=== PATIENT | male | born 1955 | race Caucasian/White ===

== ENCOUNTER 2020-08-31 16:12 | Outpatient (CLI) | payer MEDICARE, SELFPAY ==
[2020-08-31 16:45] LABS: Alanine Aminotransferase 23 U/L (4-50); Albumin Level 4.4 g/dL (3.5-5.1); Alkaline Phosphatase 46 U/L (38-126); Anion Gap 3 mmol/L (8-16); Aspartate Amino Transferase 25 U/L (17-59); Bilirubin,Total 0.3 mg/dL (0.2-1.3); Blood Urea Nitrogen 12 mg/dL (9-20); Calcium 9.3 mg/dL (8.4-10.2); Carbon Dioxide 32 mmol/L (22-30); Chloride 103 mmol/L (98-107); Cholesterol 173 mg/dL (0-200); Estimated Glomerular Filt Rate > 60; Glucose 84 mg/dL (75-110); HDL Direct 53 mg/dL; Potassium 4.4 mmol/L (3.4-5.0); Sodium 138 mmol/L (137-145); Triglycerides 264 mg/dL (<150)
[2020-08-31 16:56] LABS: LDL Cholesterol Direct 78 mg/dL
[2020-08-31 17:45] LABS: Vitamin D 25 Hydroxy 45.8 ng/mL
== END 2020-08-31 16:13 | disposition home or self-care (01) ==
LOC: ANHLAB 16:16
PROVIDERS: PCP Internal Medicine; Visit Provider Nurse Practitioner
DX: F31.9 Bipolar disorder, unspecified (principal); E78.5 Hyperlipidemia, unspecified; E55.9 Vitamin D deficiency, unspecified
CPT/HCPCS: 36415; 80053; 80061; 82306; 84443

== ENCOUNTER 2021-06-01 11:02 | Outpatient (CLI) | payer MEDICARE, SELFPAY ==
[2021-06-01 11:34] LABS: Basophils Absolute Auto 0.1 K/mm3 (0.0-0.1); Basophils Percent Auto 1.3 % (0.2-1.2); Eosinophils Absolute Auto 0.2 K/mm3 (0-0.3); Eosinophils Percent Auto 4.6 % (0-4.4); Hematocrit 41.4 % (42.0-52.0); Hemoglobin 13.7 g/dL (14.0-18.0); Immature Granulocyte Absolute 0.01 K/mm3 (0.00-0.031); Immature Granulocyte Percent A 0.2 % (0-0.5); Lymphocytes Absolute Auto 2.25 K/mm3 (0.9-3.2); Lymphocytes Percent Auto 49.3 % (18.3-44.2); Mean Corpuscular HGB Conc 33.1 g/dl (32-36); Mean Corpuscular Hemoglobin 30.1 pg (26-34); Mean Platelet Volume 10.3 fl (7.4-10.4); Monocytes Absolute Auto 0.5 K/mm3 (0.1-0.6); Monocytes Percent Auto 10.3 % (2.6-8.5); Neutrophils Absolute Auto 1.6 K/mm3 (1.3-6.7); Neutrophils Percent Auto 34.3 % (45.5-73.1); Platelet Count Result 227 k/mm3 (150-375); Red Blood Count 4.55 M/mm3 (4.6-6.20); Red Cell Distribution Width 13.5 % (11.5-14.5); White Blood Count 4.6 K/mm3 (4.5-10.0)
[2021-06-01 11:50] LABS: Alanine Aminotransferase 30 U/L (4-50); Albumin Level 4.4 g/dL (3.5-5.1); Alkaline Phosphatase 54 U/L (38-126); Anion Gap 8 mmol/L (8-16); Aspartate Amino Transferase 31 U/L (17-59); Bilirubin,Total 0.3 mg/dL (0.2-1.3); Blood Urea Nitrogen 16 mg/dL (9-20); Calcium 9.2 mg/dL (8.4-10.2); Carbon Dioxide 28 mmol/L (22-30); Chloride 99 mmol/L (98-107); Cholesterol 187 mg/dL (0-200); Estimated Glomerular Filt Rate 56; Glucose 189 mg/dL (65-110); HDL Direct 49 mg/dL; Sodium 135 mmol/L (137-145); Triglycerides 258 mg/dL (<150)
[2021-06-01 12:02] LABS: LDL Cholesterol Direct 86 mg/dL
[2021-06-01 12:21] LABS: Prostate Specific Antigen 1.3 ng/mL (< OR = 4.0)
[2021-06-05 14:19] LABS: Vitamin D 25 Hydroxy 43.1 ng/mL
== END 2021-06-01 11:03 | disposition home or self-care (01) ==
PROVIDERS: PCP Family Medicine; Visit Provider Family Medicine
DX: E55.9 Vitamin D deficiency, unspecified (principal); Z12.5 Encounter for screening for malignant neoplasm of prostate; N40.0 Benign prostatic hyperplasia without lower urinary tract symptoms; Z13.220 Encounter for screening for lipoid disorders; E78.2 Mixed hyperlipidemia; K21.9 Gastro-esophageal reflux disease without esophagitis
CPT/HCPCS: 36415; 80048; 80061; 80076; 82306; 84153; 85025; G0103

== ENCOUNTER 2021-11-19 02:30 | Emergency (ER) | payer MEDICARE, SELFPAY ==
--- NOTE | ~2021-11-19 | XR_ITS ---
EXAMINATION: XR chest 2V DATE: 11/19/2021 03:31 INDICATION: Cough. TECHNIQUE: Frontal and lateral views of the chest were obtained. COMPARISON: Chest 2 views 01/03/2014 FINDINGS: A calcified right lung nodule and calcified right hilar lymph nodes are consistent with old granulomatous disease. No pleural effusion or pneumothorax. The heart size is normal. There is a chr onic sclerotic lesion in proximal left humerus, likely an enchondroma or osteonecrosis. IMPRESSION: 1. No acute cardiopulmonary disease. Reviewed, dictated and finalized at location A.
[2021-11-19 02:36] VITALS: BP 142/65; PULSE 89; RESP 18; TEMP 36.7; O2SAT 100
[2021-11-19 03:33] LABS: Basophils Absolute Auto 0.1 K/mm3 (0.0-0.1); Basophils Percent Auto 1.2 % (0.2-1.2); Eosinophils Absolute Auto 0.3 K/mm3 (0-0.3); Eosinophils Percent Auto 3.8 % (0-4.4); Hematocrit 41.1 % (42.0-52.0); Hemoglobin 13.4 g/dL (14.0-18.0); Immature Granulocyte Absolute 0.03 K/mm3 (0.00-0.031); Immature Granulocyte Percent A 0.5 % (0-0.5); Lymphocytes Absolute Auto 3.11 K/mm3 (0.9-3.2); Lymphocytes Percent Auto 47.8 % (18.3-44.2); Mean Corpuscular HGB Conc 32.6 g/dl (32-36); Mean Corpuscular Hemoglobin 29.8 pg (26-34); Mean Corpuscular Volume 91.5 fl (80-100); Mean Platelet Volume 9.5 fl (7.4-10.4); Monocytes Absolute Auto 0.6 K/mm3 (0.1-0.6); Monocytes Percent Auto 8.8 % (2.6-8.5); Neutrophils Absolute Auto 2.5 K/mm3 (1.3-6.7); Neutrophils Percent Auto 37.9 % (45.5-73.1); Platelet Count Result 227 k/mm3 (150-375); Red Blood Count 4.49 M/mm3 (4.6-6.20); Red Cell Distribution Width 13.2 % (11.5-14.5); White Blood Count 6.5 K/mm3 (4.5-10.0)
[2021-11-19 03:42] LABS: Alanine Aminotransferase 21 U/L (6-50); Alkaline Phosphatase 58 U/L (38-126); Anion Gap 6 mmol/L (8-16); Aspartate Amino Transferase 26 U/L (17-59); Bilirubin,Total < 0.1 mg/dL (0.2-1.3); Blood Urea Nitrogen 16 mg/dL (9-20); Calcium 9.1 mg/dL (8.4-10.2); Carbon Dioxide 28 mmol/L (22-30); Chloride 102 mmol/L (98-107); Estimated CRCL calculation 60 ml/min; Estimated Glomerular Filt Rate > 60; Glucose 137 mg/dL (65-110); Potassium 3.9 mmol/L (3.4-5.0); Sodium 136 mmol/L (137-145)
--- NOTE | 2021-11-19 03:44 | ED.URI ---
HPI - URI/Sore Throat General Chief Complaint: Upper Respiratory Infection Stated Complaint: sinus infection Time Seen by Provider: 11/19/21 02:48 Source: patient History of Present Illness HPI Narrative: Patient presents with concern for a sinus infection. Reports has had about 3 days of symptoms. Reports a lot of sinus pressure on his forehead associated with congestion cough and shortness of breath. Reports subjective chills at home. Symptoms were not getting better with his sinus medications he came to the ER for further evaluation. Denies any nausea or vomiting denies any chest pain denies any known sick contacts. Reports he is vaccinated against COVID Related Data Home Medications Medication Instructions Recorded Confirmed cholecalciferol (vitamin D3) 50 2,000 unit PO DAILY 08/09/19 09/24/21 mcg (2,000 unit) capsule kfuejzis-koq-bxymn acid 300 1 tablet PO DAILY 08/09/19 09/24/21 mcg-lycopene 600 mcg-lutein 300 mcg tablet (Centrum Silver Men) Allergies Allergy/AdvReac Type Severity Reaction Status Date / Time Iodinated Contrast Media AdvReac Unknown syncope Verified 09/24/21 14:22 Review of Systems Review of Systems: CONSTITUTIONAL: Denies fever, chills, or sweats. EYES: Denies visual changes, redness, or discharge. ENT: Denies rhinorrhea, sore throat, or otalgia. CARDIOVASCULAR: Denies chest pain, palpitations, or edema. RESPIRATORY: Reports cough and shortness of breath GASTROINTESTINAL: Denies abdominal pain, nausea, vomiting, or diarrhea. GENITOURINARY: Denies dysuria or hematuria. SKIN: Denies rash or itching. MUSCULOSKELETAL: Denies back pain, joint pain, or myalgia. NEUROLOGIC: Denies headache, numbness, dizziness, or weakness. PSYCHIATRIC: Denies anxiety or depression. All systems reviewed & are unremarkable except as noted in HPI and below PMFSH Past Medical History Medical History BMI 27.0-27.9,adult BMI 28.0-28.9,adult BMI 29.0-29.9,adult Exposure to COVID-19 virus Screening for colon cancer Family History Family History Sibling Patient's sister is in good health Patient's brother is in good health Father Family history of malignant neoplasm Patient's father is Mother Patient's mother is Acute myocardial infarction Social History Social History Social History: He is currently vaping, instead of smoking Smoking packs per day: 1 Smoking cigarettes per day: 20.0 Years smoked: 47 Smoking pack-years: 47.00 Tobacco type: e-cigarettes/vaping Alcohol intake: never Exam Narrative: GENERAL: Well-appearing, well-nourished, and in no acute distress. HEAD: Normocephalic, atraumatic. EYES: PERRLA and EOMI. ENT: Nares clear, no rhinorrhea or epistaxis. Mucous membranes moist. Tenderness to percussion on the frontal sinus NECK: Supple. No masses. No JVD CHEST: Clear to auscultation. No respiratory distress. No wheezes rales or rhonchi HEART: Regular rate and rhythm. No murmur heard. Normal peripheral pulses. ABDOMEN: Soft, nontender, nondistended, normal active bowel sounds. EXTREMITIES: Normal range of motion. No edema. SKIN: Warm, dry, no rash. NEURO: No focal deficits. Alert and oriented x3. PSYCH: Normal mood and affect. Course Reevaluation(s) Reevaluation #1: Patient resting comfortably results and plan reviewed with patient. Patient comfortable outpatient plan. Date: 11/19/21 Time: 04:22 Vital Signs Vital signs: Vital Signs Temperature 36.7 C 11/19/21 02:36 Pulse Rate 89 11/19/21 02:36 Respiratory Rate 18 11/19/21 02:36 Blood Pressure 142/65 H 11/19/21 02:36 Pulse Oximetry 100 11/19/21 02:36 Oxygen Delivery Room Air 11/19/21 02:36 Temperature 36.7 C 11/19/21 02:36 Pulse Rate 87 11/19/21 03:55 Respiratory Rate 18
[2021-11-19 03:55] VITALS: PULSE 87; RESP 18; O2SAT 97
[2021-11-19 04:03] LABS: SARS-CoV-2 RNA PCR Negative
== END 2021-11-19 04:44 | disposition home or self-care (01) ==
PROVIDERS: Emergency Provider Emergency Medicine; PCP Family Medicine
DX: J01.10 Acute frontal sinusitis, unspecified (principal); Z20.822 Contact with and (suspected) exposure to COVID-19
CPT/HCPCS: 36415; 71046; 80053; 85025; 99283; C9803; U0003; U0005

== ENCOUNTER 2021-12-31 16:20 | Outpatient (CLI) | payer MEDICARE, SELFPAY ==
--- NOTE | ~2021-12-31 | XR_ITS ---
XR lumbar spine 6V w bending DATE: 12/31/2021 17:01 INDICATION: Spondylosis without myelopathy or radiculopathy TECHNIQUE: AP, bilateral oblique views and coned lateral lumbosacral view. Lateral and flexion and ex tension lateral views. COMPARISON: None FINDINGS: Mild dextroscoliosis of the lumbar spine. No fracture or bone destruction. The included lower thoracic and lumbar pedicles are intact. No spond ylolysis. There is degenerative change at the apophyseal joints of the mid and lower lumbar and lumbosacral are a with minimal grade 1 anterolisthesis at L3-4, stable in flexion, extension and neutral. There is moderate degenerative disc disease at L1-2, L2-3, L3-4 and mild degenerative disc disease at L4-5. The sacroiliac joints are intact. Extensive calcification of the abdominal aorta and common iliac arteries, without evidence of abdomin al aortic aneurysm. IMPRESSION: Mild dextro scoliosis Mild to moderate degenerative disc disease Degenerative changes of apophyseal joints with associated minimal grade 1 anterolisthesis at L3-4 No fracture or instability is detected Reviewed, dictated and finalized at location B. IMPRESSION: Mild dextro scoliosis Mild to moderate degenerative disc disease Degenerative changes of apophyseal joints with associated minimal grade 1 anter olisthesis at L3-4 No fracture or instability is detected
[2021-12-31 16:54] LABS: Hematocrit 42.1 % (42.0-52.0); Hemoglobin 13.6 g/dL (14.0-18.0); Mean Corpuscular HGB Conc 32.3 g/dl (32-36); Mean Corpuscular Hemoglobin 29.6 pg (26-34); Mean Corpuscular Volume 91.7 fl (80-100); Mean Platelet Volume 9.7 fl (7.4-10.4); Platelet Count Result 262 k/mm3 (150-375); Red Blood Count 4.59 M/mm3 (4.6-6.20); Red Cell Distribution Width 13.9 % (11.5-14.5); White Blood Count 4.8 K/mm3 (4.5-10.0)
[2021-12-31 17:06] LABS: Alanine Aminotransferase 18 U/L (6-50); Albumin Level 4.5 g/dL (3.5-5.1); Alkaline Phosphatase 46 U/L (38-126); Anion Gap 7 mmol/L (8-16); Aspartate Amino Transferase 21 U/L (17-59); Bilirubin,Total 0.4 mg/dL (0.2-1.3); Blood Urea Nitrogen 15 mg/dL (9-20); Calcium 9.3 mg/dL (8.4-10.2); Carbon Dioxide 27 mmol/L (22-30); Chloride 103 mmol/L (98-107); Estimated Glomerular Filt Rate > 60; Glucose 92 mg/dL (65-110); HDL Direct 46 mg/dL; Potassium 4.3 mmol/L (3.4-5.0); Sodium 137 mmol/L (137-145); Triglycerides 281 mg/dL (<150)
[2021-12-31 17:14] LABS: LDL Cholesterol Direct 204 mg/dL
[2021-12-31 17:15] LABS: Cholesterol 337 mg/dL (0-200)
[2021-12-31 17:32] LABS: Prostate Specific Antigen 1.6 ng/mL (< OR = 4.0)
[2021-12-31 22:26] LABS: Vitamin D 25 Hydroxy 48.7 ng/mL
== END 2021-12-31 16:21 | disposition home or self-care (01) ==
PROVIDERS: PCP Family Medicine; Visit Provider Family Medicine
DX: Z12.5 Encounter for screening for malignant neoplasm of prostate (principal); K21.9 Gastro-esophageal reflux disease without esophagitis; N40.0 Benign prostatic hyperplasia without lower urinary tract symptoms; Z13.220 Encounter for screening for lipoid disorders; E55.9 Vitamin D deficiency, unspecified; M41.9 Scoliosis, unspecified; I70.0 Atherosclerosis of aorta; M47.817 Spondylosis without myelopathy or radiculopathy, lumbosacral region; E78.2 Mixed hyperlipidemia
CPT/HCPCS: 36415; 72114; 80048; 80061; 80076; 82306; 84153; 84443; 85027; G0103